=== PATIENT | female | born 1995 | race American Indian/Alaskan Native ===

== ENCOUNTER 2016-11-03 04:16 | Emergency (ER) | payer SELFPAY ==
[2016-11-03 05:40] LABS: Basophils % (Auto) 0.4 % (0.0-1.8); Eosinophils % (Auto) 0.9 % (0.0-4.3); Hematocrit 36.5 % (30.3-42.9); Hemoglobin 11.8 gm/dl (10.1-14.3); Mean Corpuscular HGB Conc 32 % (30-34); Mean Corpuscular Hemoglobin 27 pg (28-32); Mean Corpuscular Volume 84 fl (79-97); Platelet Count 252 K/mm3 (140-440); Red Blood Count 4.36 M/mm3 (3.65-5.03); Red Cell Distribution Width 13.7 % (13.2-15.2)
[2016-11-03 06:05] LABS: Creatine Kinase MB 2.4 ng/mL (0.0-4.0)
[2016-11-03 06:06] LABS: Anion Gap 20 mmol/L; Blood Urea Nitrogen 9 mg/dL (7-17); Calcium 9.4 mg/dL (8.4-10.2); Carbon Dioxide 22 mmol/L (22-30); Chloride 101.6 mmol/L (98-107); Creatine Kinase 440 units/L (30-135); Glucose 97 mg/dL (65-100); Potassium 4.1 mmol/L (3.6-5.0); Sodium 139 mmol/L (137-145)
--- NOTE | 2016-11-03 06:16 | Emergency Department Report ---
HPI - General Chief Complaint: Medical Clearance Time Seen by Provider: 11/03/16 05:07 - HPI HPI: 21-year-old female presents today with left-sided chest tightness since 12 PM yesterday. Patient states that she also had a stress left-sided abdominal pain that resolved. Positive for history of asthma. Patient complaining of chest pain with deep breath. Denies fever, chills, cough, cold symptoms, shortness of breath, nausea, vomiting, abdominal pain. Denies having any medication for symptomatic relief. Denies history of similar symptoms. Rates her chest pain with deep breath as a 7 out of 10. ED Past Medical Hx - Past Medical History Previous Medical History?: Yes Hx Asthma: Yes - Surgical History Past Surgical History?: No - Social History Smoking Status: Current Some Day Smoker Substance Use Type: None - Medications Home Medications: Home Medications Medication Instructions Recorded Confirmed Last Taken Type Naproxen [Naprosyn] 500 mg PO BID #20 tablet 11/03/16 Unknown Rx ED Review of Systems ROS: Stated complaint: GENERAL ILLNESS Other details as noted in HPI Constitutional: denies: chills, fever, malaise Eyes: denies: eye pain ENT: denies: ear pain, throat pain, congestion Respiratory: denies: cough, shortness of breath, wheezing Cardiovascular: chest pain. denies: palpitations Endocrine: no symptoms reported Gastrointestinal: denies: abdominal pain, nausea, vomiting Physical Exam - Physical Exam Vital Signs: Vital Signs 11/03/16 04:42 Temperature 98.2 F Pulse Rate 102 H Respiratory 32 H Rate Blood Pressure 128/90 O2 Sat by Pulse 100 Oximetry Physical Exam: GENERAL: The patient is well-developed and well-nourished. Patient is in NAD. HEAD: Normocephalic. Atraumatic. CHEST/LUNGS: Clear to auscultation throughout. HEART/CARDIOVASCULAR: Regular rate and rhythm. No murmurs, rubs or gallops. ABDOMEN: Abdomen is soft, nontender. Bowel sounds normoactive. No guarding or rebound tenderness. EXTREMITIES: Peripheral pulses intact. Capillary refill less than 2 seconds. NEURO: Alert and oriented x 3. Normal gait. ED Course Vital Signs 11/03/16 04:42 Temperature 98.2 F Pulse Rate 102 H Respiratory 32 H Rate Blood Pressure 128/90 O2 Sat by Pulse 100 Oximetry ED Medical Decision Making - Lab Data Result diagrams: 11/03/16 05:27 11/03/16 05:27 Vital Signs 11/03/16 11/03/16 04:42 06:20 Temperature 98.2 F 97.9 F Pulse Rate 102 H 68 Respiratory 32 H 20 Rate Blood Pressure 128/90 Blood Pressure 122/72 [Right] O2 Sat by Pulse 100 100 Oximetry Lab Results 11/03/16 11/03/16 11/03/16 Range/Units 05:27 05:27 05:27 WBC 8.0 (4.5-11.0) K/mm3 RBC 4.36 (3.65-5.03) M/mm3 Hgb 11.8 (10.1-14.3) gm/dl Hct 36.5 (30.3-42.9) % MCV 84 (79-97) fl MCH 27 L (28-32) pg MCHC 32 (30-34) % RDW 13.7 (13.2-15.2) % Plt Count 252 (140-440) K/mm3 Lymph % (Auto) 36.3 H (13.4-35.0) % [place] % (Auto) 6.5 (0.0-7.3) % Eos % (Auto) 0.9 (0.0-4.3) % Baso % (Auto) 0.4 (0.0-1.8) % Lymph # 2.9 (1.2-5.4) K/mm3 [place] # 0.5 (0.0-0.8) K/mm3 Eos # 0.1 (0.0-0.4) K/mm3 Baso # 0.0 (0.0-0.1) K/mm3 Seg Neutrophils % 55.9 (40.0-70.0) % Seg Neutrophils # 4.5 (1.8-7.7) K/mm3 D-Dimer 191.14 (0-234) ng/mlDDU Sodium 139 (137-145) mmol/L Potassium 4.1 (3.6-5.0) mmol/L Chloride 101.6 (98-107) mmol/L Carbon Dioxide 22 (22-30) mmol/L Anion Gap 20 mmol/L BUN 9 (7-17) mg/dL Creatinine 0.5 L (0.7-1.2) mg/dL Estimated GFR > 60 ml/min BUN/Creatinine Ratio 18.00 % Glucose 97 (65-100) mg/dL Calcium 9.4 (8.4-10.2) mg/dL Total Creatine Kinase 440 H (30-135) units/L CK-MB (CK-2) 2.4 (0.0-4.0) ng/mL CK-MB (CK-2) Rel Index 0.5 (0-4) Troponin T < 0.010 (0.00-0.029) ng/mL - Radiology Data Radiology results: image reviewed interpreted by me: Image reviewed by Dr. Davenport and myself. CXR: No acute cardiopulmonary findings. - Medical Decision Making 21-year-old female presents today with left-sided chest tightness and chest pain with deep breath. Her x-ray reveals no acute findings. Her lab results including d-dimer is within normal limits. Consulted with Dr. Davenport. Patient is in no acute distress at this time. She will be discharged home and is encouraged to follow up with a primary care provider. She will be sent home on naproxen and is encouraged to return to the emergency room for any worsening symptoms. Critical care attestation.: If time is entered above; I have spent that time in minutes in the direct care of this critically ill patient, excluding procedure time. ED Disposition Clinical Impression: Chest pain Qualifiers: Chest pain type: chest pain on breathing Qualified Code(s): R07.1 - Chest pain on breathing Disposition: DISCHARGED TO HOME OR SELFCARE Is pt being admited?: No Does the pt Need Aspirin: No Condition: Stable Instructions: Chest Pain (ED) Additional Instructions: Follow with primary care provider. Return to the emergency department if symptoms worsen. Prescriptions: Naproxen [Naprosyn] 500 mg PO BID #20 tablet Referrals: PRIMARY CAREMD [Primary Care Provider] - 3-5 Days EVA ROBERTSON MD [Staff Physician] - 3-5 Days [facility] [Outside] - 3-5 Days Forms: Work/School Release Form(ED) Time of Disposition: 06:15
[2016-11-03 06:39] VITALS: BP 122/72
--- NOTE | 2016-11-03 07:55 | XRay Report ---
CHEST 2 VIEWS INDICATION: Chest pain. COMPARISON: None similar at this institution. FINDINGS: PA and lateral chest radiographs demonstrate normal cardiomediastinal silhouette. Clear lungs. Intact bones. CONCLUSION: No acute disease in the chest. Thank you for the opportunity to participate in this patient's care.
== END 2016-11-03 06:20 | disposition home or self-care (01) ==
LOC: ED 04:16
DX: R07.1 Chest pain on breathing (principal); J45.909 Unspecified asthma, uncomplicated; Z72.0 Tobacco use
CPT/HCPCS: 36415; 71020; 80048; 82550; 82553; 84484; 85025; 85379

== ENCOUNTER 2017-11-01 19:50 | Outpatient (CLI) | payer MEDICAID ==
[2017-11-01] MEDS ORDERED: LACTATED RINGERS 1,000 ML IV ONE (19:53)
[2017-11-01 20:36] VITALS: BP 102/54
== END 2017-11-01 20:52 | disposition home or self-care (01) ==
LOC: TRG 19:50
PROVIDERS: ATTEND Obstetrics & Gynecology
DX: O47.03 False labor before 37 completed weeks of gestation, third trimester (principal); Z3A.31 31 weeks gestation of pregnancy
CPT/HCPCS: 59025

== ENCOUNTER 2017-12-04 20:55 | Outpatient (CLI) | payer MEDICAID ==
[2017-12-04] MEDS ORDERED: NITRATEST PAPER MC ONE (22:00)
[2017-12-04] MEDS ORDERED: LACTATED RINGERS 500 ML IV ONE (22:48)
[2017-12-04 23:11] LABS: Bilirubin,Urine NEG (Negative); Blood,Urine NEG (Negative); Color,Urine Yellow (Yellow); Protein,Urine <15 mg/dL mg/dL (Negative); Urobilinogen,Urine < 2.0 mg/dL (<2.0)
[2017-12-05 00:10] VITALS: BP 119/61
== END 2017-12-04 22:00 | disposition home or self-care (01) ==
LOC: TRG 20:55
PROVIDERS: ATTEND Obstetrics & Gynecology
DX: O47.03 False labor before 37 completed weeks of gestation, third trimester (principal); Z3A.36 36 weeks gestation of pregnancy
CPT/HCPCS: 59025; 81001; J7120

== ENCOUNTER 2018-01-05 16:42 | Inpatient (IN) | payer MEDICAID ==
[2018-01-05] MEDS: D5LR 1,000 ML IV SCH ×2 (18:20→21:29)
[2018-01-05] MEDS ORDERED: LACTATED RINGERS 1,000 ML IV ONE (18:37)
[2018-01-05] MEDS ORDERED: SUBLIMAZE IV ONE (19:26)
[2018-01-05] MEDS ORDERED: STADOL IV PRN (19:26)
[2018-01-05] MEDS ORDERED: SUBLIMAZE ONE (19:33)
[2018-01-05 19:38] LABS: Hematocrit 34.9 % (30.3-42.9); Mean Corpuscular HGB Conc 32 % (30-34); Mean Corpuscular Hemoglobin 26 pg (28-32); Mean Corpuscular Volume 83 fl (79-97); Platelet Count 223 K/mm3 (140-440); Red Blood Count 4.22 M/mm3 (3.65-5.03); Red Cell Distribution Width 14.5 % (13.2-15.2)
[2018-01-05] MEDS ORDERED: SUBLIMAZE IV PRN (20:30)
[2018-01-05] MEDS: SUBLIMAZE IV PRN (22:17)
[2018-01-06] MEDS: SUBLIMAZE IV PRN (02:49)
[2018-01-06] MEDS: LACTATED RINGERS 1,000 ML IV SCH ×4 (03:56→13:30)
[2018-01-06] MEDS ORDERED: ePHEDrine SULFATE ONE (04:23)
[2018-01-06] MEDS ORDERED: ePHEDrine SULFATE IV PRN (04:34)
[2018-01-06] MEDS ORDERED: NARCAN 2 MG/2 ML IV PRN (04:34)
--- NOTE | 2018-01-06 04:34 | Anesthesia Consultation ---
Anesthesia Consult and Med Hx Date of service: 01/06/18 - Airway Anesthetic Teeth Evaluation: Good ROM Head & Neck: Adequate Mental/Hyoid Distance: Adequate Mallampati Class: Class III Intubation Access Assessment: Possibly Difficult - Pulmonary Exam CTA: Yes - Cardiac Exam Cardiac Exam: RRR - Pre-Operative Health Status ASA Pre-Surgery Classification: ASA3 Proposed Anesthetic Plan: Epidural - Pulmonary Hx Asthma: No COPD: No Hx Pneumonia: No - Cardiovascular System Hx Hypertension: No - Central Nervous System Hx Seizures: No Hx Psychiatric Problems: No - Endocrine Hx Renal Disease: No Hx End Stage Renal Disease: No Hx Hypothyroidism: No Hx Hyperthyroidism: No - Hematic Hx Anemia: No Hx Sickle Cell Disease: No - Other Systems Hx Alcohol Use: No
[2018-01-06] MEDS ORDERED: ZOFRAN ONE (05:06)
[2018-01-06] MEDS ORDERED: ZOFRAN IV ONE (05:16)
[2018-01-06] MEDS: fentaNYL-BUPIV 2 MCG/ML-0.125% 200 MCG/100 ML BAG EPIDURAL SCH ×3 (05:49→17:00)
[2018-01-06] MEDS ORDERED: PITOCin/NS 30 UNIT/500ML 30 UNITS/500 ML BAG IV SCH (06:00)
[2018-01-06] MEDS ORDERED: TYLENOL PO ONE (08:43)
[2018-01-06] MEDS ORDERED: XYLOCAINE 2% INFILTRATI ONE (12:48)
[2018-01-06] MEDS ORDERED: PITOCin/NS 20 UNIT/1000ML DRIP 20,000 MILLIUNITS/1,000 ML BAG IV ONE ×2 (14:06→17:20)
[2018-01-06] MEDS ORDERED: CYTOTEC ONE (14:06)
[2018-01-06] MEDS ORDERED: NACL 0.9% 1000 ML 1,000 ML ONE (14:31)
--- NOTE | 2018-01-06 15:04 | History and Physical Report ---
History of Present Illness Date of examination: 01/06/18 Date of admission: 01/05/18 18:43 Chief complaint: I'm having contractions History of present illness: Patient is a 22 year old who presents for active contractions. Patient was a late presentation to care at 16 weeks. She has a history of herpes and was positive for trichomonas during her . care also complicated by obesity. 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, trichomonas Family/Genetic History: none Social history: single - Obstetrical History Expected Date of Delivery: 12/30/17 Actual Gestation: 41 Week(s) 0 Day(s) : 2 Medications and Allergies Allergies Allergy/AdvReac Type Severity Reaction Status Date / Time No Known Allergies Allergy Verified 11/03/16 04:41 Home Medications Medication Instructions Recorded Confirmed Last Taken Type Pnv No.95/Ferrous Fum/Folic AC 1 tab PO DAILY 01/05/18 01/05/18 Unknown History [ Vitamins Tablet] Ranitidine HCl [Acid Cutter Operator] 150 mg PO DAILY 01/05/18 01/05/18 Unknown History valACYclovir [Valtrex] 1 tab PO DAILY 01/05/18 01/05/18 Unknown History Active Meds: Active Medications Butorphanol Tartrate (Stadol) 1 mg IV Q2H PRN PRN Reason: Labor Pain Ephedrine Sulfate (Ephedrine Sulfate) 10 mg IV Q2M PRN PRN Reason: Hypotension Last Admin: 01/06/18 13:40 Dose: 10 mg Fentanyl (Sublimaze) 100 mcg IV Q2H PRN PRN Reason: Labor Pain Last Admin: 01/06/18 02:49 Dose: 100 mcg Dextrose/Lactated Ringer's (D5lr) 1,000 mls @ 125 mls/hr IV DIRECT ALAN Last Admin: 01/05/18 21:29 Dose: 125 mls/hr Lactated Ringer's (Lactated Ringers) 1,000 mls @ 125 mls/hr IV DIRECT ALAN Last Admin: 01/06/18 13:30 Dose: 200 mls/hr Fentanyl/Bupivacaine/Sodium Chlor (Fentanyl-Bupiv 2 Mcg/Ml-0.125%) 200 mcg in 100 mls @ 12 mls/hr EPIDURAL TITR ALAN; Protocol Last Admin: 01/06/18 13:24 Dose: 12 mls/hr Oxytocin/Sodium Chloride (Pitocin/Ns 30 Unit/500ml) 30 units in 500 mls @ 2 mls /hr IV TITR ALAN; Protocol Last Titration: 01/06/18 13:36 Dose: 8 milliunits/min, 8 mls/hr Naloxone HCl (Narcan 2 Mg/2 Ml) 0.2 mg IV Q5M PRN PRN Reason: Respiratory sedation Review of Systems All systems: negative Constitutional: weight gain Genitourinary: contractions - Vital Signs Vital signs: Vital Signs Temp Pulse Resp BP 98 F 68 16 125/70 01/05/18 17:10 01/05/18 17:10 01/05/18 17:10 01/05/18 17:10 Temp Pulse Resp BP Pulse Ox 98.8 F 112 H 22 110/53 100 01/06/18 08:55 01/06/18 10:11 01/06/18 10:11 01/06/18 10:11 01/06/18 10:11 - Physical Exam Breasts: Positive: deferred Cardiovascular: Regular rate, Normal S1, Normal S2 Lungs: Positive: Clear to auscultation, Normal air movement Abdomen: Positive: normal appearance, soft, normal bowel sounds Genitourinary (Female): Positive: normal external genitalia Uterus: Positive: normal size, normal contour - Obstetrical Cervical Dilatation: 3 Cervical Effacement Percentage: 80 Results Result Diagrams: 01/05/18 19:12 Abnormal lab results 01/05/18 Range/Units 19:12 WBC 13.5 H (4.5-11.0) K/mm3 MCH 26 L (28-32) pg All other labs normal. Assessment and Plan IUP at 40.1 weeks in labor. Admit for labor augmentation. Anticipate .
--- NOTE | 2018-01-06 15:09 | Event Note ---
Date: 01/06/18 Notified by nursing staff that patient had SROM with meconium fluid. IUPC placed for amnioinfusion. Patient now at 9.5cm. Anticipate .
[2018-01-06] MEDS ORDERED: MINERAL OIL ONE (15:51)
[2018-01-06] MEDS ORDERED: MINERAL OIL TP ONE (16:00)
[2018-01-06] MEDS ORDERED: NORCO 7.5/325 PO PRN (17:01)
--- NOTE | 2018-01-06 17:30 | Procedure Note ---
OB Delivery Note - Delivery Date of Delivery: 01/06/18 Surgeon: MARIANNA SAHU Estimated blood loss: 200cc - Vaginal Delivery presentation: vertex Delivery position: OA Intrapartum events: febrile- temp >100.3, PROM->1hr before delivery, meconium Delivery induction: none Delivery augmentation: pitocin Delivery monitor: external FHT, external uterine Route of delivery: Delivery placenta: spontaneous Delivery cord: 3 umbilical vessels Episiotomy: none Delivery laceration: none Anesthesia: epidural Delivery comments: Viable female delivered over intact perineum. Mouth and nose suctioned on field. Body of delivered and handed to waiting NICU personnel after cord was cut and clamped. Apgars 5,8. Placenta delivered spontaneously and intact with 3vc and meconium staining. No lacerations. Patient tolerated procedure well. - A at 1 minute: 5 at 5 minutes: 8 Infant Gender: Female (weight 8 pounds 11 ounces.)
[2018-01-06] MEDS ORDERED: MOTRIN PO PRN (17:32)
[2018-01-06] MEDS ORDERED: ANCEF/NS 1 GM/50 ML 1 GM/50 ML BAG IV SCH (18:00)
[2018-01-06] MEDS: ceFAZolin 1 GM in NACL 0.9% 20 ML IV SCH (19:26)
[2018-01-06] MEDS ORDERED: TYLENOL PO PRN (21:07)
[2018-01-06] MEDS ORDERED: ZOFRAN IV PRN (21:07)
[2018-01-06] MEDS ORDERED: MILK OF MAGNESIA PO PRN (21:07)
[2018-01-06] MEDS ORDERED: LANSINOH TP PRN (21:07)
[2018-01-06] MEDS ORDERED: SODIUM CHLORIDE FLUSH SYRINGE 10 ML IV PRN (21:07)
[2018-01-06] MEDS ORDERED: PHENERGAN PO PRN (21:07)
[2018-01-06] MEDS ORDERED: TUCKS PAD TP PRN (21:07)
[2018-01-06] MEDS ORDERED: BENADRYL PO PRN (21:07)
[2018-01-06] MEDS ORDERED: DULCOLAX PR PRN (21:07)
[2018-01-06] MEDS: MOTRIN PO SCH (23:06)
[2018-01-06] MEDS: NORCO 5/325 PO PRN (23:06)
[2018-01-06] MEDS: COLACE PO SCH (23:06)
[2018-01-07] MEDS: ceFAZolin 1 GM in NACL 0.9% 20 ML IV SCH ×2 (03:13→11:39)
[2018-01-07] MEDS: NORCO 5/325 PO PRN ×3 (05:05→22:14)
[2018-01-07] MEDS: MOTRIN PO SCH ×2 (05:05→11:38)
[2018-01-07 05:20] LABS: Hematocrit 27.6 % (30.3-42.9); Hemoglobin 8.7 gm/dl (10.1-14.3)
--- NOTE | 2018-01-07 08:11 | Progress Note ---
Assessment and Plan A/P PPD#1 s/p no complaints VSS H/H 11-8.7 on iron routine PP orders d/c home tomorrow Subjective - Subjective Date of service: 01/07/18 Principal diagnosis: s/p Patient reports: appetite normal, voiding normally, pain well controlled, flatus , ambulating normally [place]: doing well Objective - Vital Signs Latest vital signs: Vital Signs Temp Pulse Resp BP BP Pulse Ox 01/07/18 04:10 98.3 F 78 18 120/42 01/07/18 00:00 98.6 F 83 18 110/55 01/06/18 19:45 98.8 F 80 20 148/70 01/06/18 19:31 109 H 133/60 01/06/18 19:06 20 01/06/18 18:45 99.4 F 118 H 20 136/63 01/06/18 18:10 108 H 22 139/63 01/06/18 17:45 110 H 22 133/63 01/06/18 17:30 116 H 24 144/68 01/06/18 17:10 101.3 F H 114 H 24 162/67 100 01/06/18 16:55 112 H 26 H 122/58 01/06/18 16:03 98.9 F 117 H 26 H 150/65 01/06/18 10:11 112 H 22 110/53 100 01/06/18 09:55 110 H 20 113/58 01/06/18 09:40 74 20 111/53 01/06/18 09:25 79 20 124/58 01/06/18 09:07 77 20 122/56 99 01/06/18 08:55 98.8 F 77 18 127/57 01/06/18 08:40 77 125/57 01/06/18 08:25 79 20 123/56 100 01/06/18 08:10 99 H 20 133/63 Intake and Output 01/06/18 01/07/18 01/07/18 23:59 07:59 15:59 Output Total 1900 1000 Balance -1900 -1000 Output: Urine 1900 1000 Void 1900 1000 Other: Total, Output Amount 1000 1000 Estimated Blood Loss 250 - Exam Breasts: Present: normal Cardiovascular: Present: Regular rate, Normal S1 Lungs: Present: Clear to auscultation, Normal air movement Abdomen: Present: normal appearance, soft, normal bowel sounds. Absent: distention, tenderness, guarding Vulva: both: normal Uterus: Present: normal, firm, fundal height below umbilicus. Absent: bogginess , tenderness Extremities: Present: normal Deep Tendon Reflex Grade: Normal +2 - Labs Labs: Abnormal lab results 01/07/18 Range/Units 05:01 Hgb 8.7 L (10.1-14.3) gm/dl Hct 27.6 L D (30.3-42.9) %
[2018-01-07] MEDS: PRENATAL VITAMIN PO SCH (11:38)
[2018-01-07] MEDS: COLACE PO SCH ×2 (11:38→22:14)
--- NOTE | 2018-01-07 21:17 | Progress Note ---
Subjective Date of service: 01/07/18 Principal diagnosis: s/p Interval history: Notified by the nurse that the patient was complaining of tight muscles in the back in the region of the epidural. The nurse explained that we had been notified earlier during the day. I informed the nurse that this was the first time I was notified about this issue. When I arrived in the room, the nurse ushered me into the room. Patient sitting straight up talking on the phone. The patient was awake alert and oriented in no acute distress. She explains the symptoms as tender at the area of the epidural with radiation of tightness around the abdomen and the patient traces the pattern of the external obliques with her hands. She then indicated that there was an incidence of the pain pain traveling up the spine. I traced the multifidus group of paraspinous muscles of which she indicated that I was tracing the correct muscle group. Patient asked about any signs of infection. The patient correctly indicated one incidence of a fever yesterday. She indicated that she had several doses of antibiotics but completed the round today. After explaining my findings and discussion with the patient, the patient takes the ear bud out of her ear and announces indicates that she was placing the phone on speaker function. The patient indicated that it was her mother on the phone. Her mother indicates her dissatisfaction with the fact that her daughter had been waiting all day for this consult. I informed the mother that I was present within 30 minutes of being notified. The mother indicated that it was her goal to have the back issue resolved prior to her daughter leaving the hospital. I explained that I am a consulting physician and do not have admitting privileges. I also informed the patient and mother that I will not be placing orders but rather be making recommendations. AAO, NAD, pupils of equal size, CN II through XII grossly intact, MAEW, able to walk without assistance with normal gait, minimal TTP over the lumbar region without any erythema or calor I am concerned about the need for antibiotics. Myalgias are common with some forms of infection but also seems to be common with some antibiotics. Without any erythema or calor or meningial signs, it is unlikely that the source would be the epidural catheter. Still, if any signs occur, anesthesia should be notified. Now that the antibiotics are complete and assuming the the infection is clear, if this was the cause of the symptoms they will not return. Any time that a muscle is pierced by a needle, the muscle can become 'twitchy' making spasms fairly common for a few days afterwards. This would be a likely explanation of the tight muscles in the lumbar region. Sometimes certain groups can recruit muscles in the area. The multifidus muscle appeared to recruit causing the expansion of discomfort up the spine. In addition to this, the gestational period places a lot of strain on the spine musculature especially in the lumbar region Assuming that this is muscular back ache causing the tight muscles the treatment is: Stretching the muscle groups frequently. A Physical Therapist can be asked to teach the patient an adequate regimen. She should remain as active as possible. NSAID unless contraindication is known. Muscle relaxants like Zanaflex, Flexeril, Robaxin, Skelaxin Narcotics like hydrocodone or oxycodone should be utilized very sparingly if at all for acute flares only. We should watch the electrolytes like potassium and magnesium and treat deficiencies. If the patient has a continued problem with this, consider a referral to a fellowship trained interventional pain management physician. Objective - Constitutional Vitals: Vital Signs - 12hr 01/07/18 01/07/18 08:13 16:55 Temperature 97.7 F 97.2 F L Pulse Rate 85 79 Respiratory 18 18 Rate Blood Pressure 131/60 152/80 O2 Sat by Pulse 98 100 Oximetry - Labs CBC & Chem 7: 01/07/18 05:01 Labs: Abnormal lab results 01/07/18 Range/Units 05:01 Hgb 8.7 L (10.1-14.3) gm/dl Hct 27.6 L D (30.3-42.9) %
--- NOTE | 2018-01-08 09:00 | Progress Note ---
Assessment and Plan - Patient Problems (1) Muscle spasm Current Visit: Yes Status: Acute Plan to address problem: Will try a course of Flexeril today and monitor patient's symptoms. Subjective - Subjective Date of service: 01/08/18 Principal diagnosis: s/p Interval history: The patient complains of pain in her body. She reports she has been experiencing spasms in her back. The patient was evaluated by anesthesia yesterday. Has not used any muscle relaxants as of yet. She has been tolerating a regular diet without complication. Patient reports: appetite normal, voiding normally, no pain well controlled : doing well Objective - Vital Signs Latest vital signs: Vital Signs Temp Pulse Resp BP BP Pulse Ox 01/07/18 23:55 98.6 F 80 16 128/58 01/07/18 23:14 18 01/07/18 22:14 18 01/07/18 16:55 97.2 F L 79 18 152/80 100 Intake and Output 01/07/18 01/08/18 01/08/18 22:59 06:59 14:59 Intake Total 240 360 Balance 240 360 Intake: Intake, Free Water 240 360 Other: # Voids Void 2 1
[2018-01-08] MEDS: FLEXERIL PO PRN ×2 (10:46→22:39)
[2018-01-08] MEDS: NORCO 5/325 PO PRN (10:46)
[2018-01-08] MEDS: PRENATAL VITAMIN PO SCH (10:48)
[2018-01-08] MEDS: COLACE PO SCH ×2 (10:48→21:42)
--- NOTE | 2018-01-08 13:49 | Event Note ---
Date: 01/08/18 Patient reports feeling better with the use of flexeril. She is attempting to perform some stretching exercises. Will send patient home tomorrow
--- NOTE | 2018-01-08 13:52 | Discharge Summary ---
Providers - Providers Date of Admission: 01/05/18 18:43 Date of discharge: 01/09/18 Attending physician: JERILYN NUÑEZ MD Primary care physician: JERILYN NUÑEZ MD Hospitalization Reason for admission: active labor Delivery: complications: other (muscle spasm) Discharge diagnosis: IUP at term delivered Hospital course: Patient admitted in active labor complicated by meconium. The patient has a . complicated by lower back pain and spasms. She experienced improvement with flexeril. Condition at discharge: Good Disposition: DC-01 TO HOME OR SELFCARE - Discharge Diagnoses (1) Muscle spasm Status: Acute Plan - Discharge Medications Prescriptions: Cyclobenzaprine [Flexeril] 10 mg PO TID PRN #30 tablet PRN Reason: Muscle Spasm Ferrous Sulfate 325 mg PO BID #60 tablet. Ibuprofen [Motrin] 600 mg PO Q8H PRN #30 tablet PRN Reason: Pain oxyCODONE /ACETAMINOPHEN [Percocet 5/325] 1 tab PO Q6HR PRN #20 tablet PRN Reason: Pain - Provider Discharge Summary Activity: no sex for 6 weeks, no heavy lifting 4 weeks, no strenuous exercise Diet: routine Additional instructions: [] Smoking cessation referral if applicable(refer to patient education folder for contact #) [] Refer to [facility] Booklet Call your doctor immediately for: * Fever > 100.5 * Heavy vaginal bleeding ( >1 pad per hour) * Severe persistent headache * Shortness of breath * Reddened, hot, painful area to leg or breast * schedule followup in 4 weeks - Follow up plan
[2018-01-08] MEDS: MOTRIN PO SCH (21:42)
[2018-01-09] MEDS: MOTRIN PO SCH ×2 (05:18→10:41)
[2018-01-09 09:36] VITALS: BP 123/51
[2018-01-09] MEDS: COLACE PO SCH (10:41)
[2018-01-09] MEDS: PRENATAL VITAMIN PO SCH (10:41)
[2018-01-09] MEDS: NORCO 5/325 PO PRN (10:42)
== END 2018-01-09 13:00 | disposition home or self-care (01) | DRG 774 ==
LOC: TRG 16:42 → LD 18:43 → OB 01-06 22:23
PROVIDERS: ADMIT Obstetrics & Gynecology; ATTEND Obstetrics & Gynecology
PROC: 10E0XZZ Delivery of Products of Conception, External Approach (ICD-10-PCS; principal; 2018-01-06)
PROC: 3E0R3BZ Introduction of Anesthetic Agent into Spinal Canal, Percutaneous Approach (ICD-10-PCS; 2018-01-06)
PROC: 00HU33Z Insertion of Infusion Device into Spinal Canal, Percutaneous Approach (ICD-10-PCS; 2018-01-06)
PROC: 10H07YZ Insertion of Other Device into Products of Conception, Via Natural or Artificial Opening (ICD-10-PCS; 2018-01-06)
DX: O77.0 Labor and delivery complicated by meconium in amniotic fluid (principal); O98.513 Other viral diseases complicating pregnancy, third trimester; O99.214 Obesity complicating childbirth; M62.838 Other muscle spasm; Z37.0 Single live birth; Z68.43 Body mass index [BMI] 50.0-59.9, adult; B00.9 Herpesviral infection, unspecified; O98.313 Other infections with a predominantly sexual mode of transmission complicating pregnancy, third trimester; A59.9 Trichomoniasis, unspecified; E66.01 Morbid (severe) obesity due to excess calories; O99.89 Other specified diseases and conditions complicating pregnancy, childbirth and the puerperium; O75.2 Pyrexia during labor, not elsewhere classified
CPT/HCPCS: 36415; 85014; 85018; 85027; 86592; 86850; 86900; 86901; 88307; 99211; G0463; J0690; J2405; J2590; J3010; J7030; J7120; J7121

== ENCOUNTER 2018-04-08 14:01 | Emergency (ER) | payer SELFPAY ==
[2018-04-08 14:22] VITALS: BP 166/61
--- NOTE | 2018-04-08 17:15 | Emergency Department Report ---
ED ENT HPI - General Chief complaint: Sore Throat Stated complaint: SORE THROAT Time Seen by Provider: 04/08/18 16:57 Source: patient Mode of arrival: Ambulatory Limitations: No Limitations - History of Present Illness Initial comments: This is a 23-year-old female nontoxic, well nourished in appearance, no acute signs of distress presents to the ED with c/o of sore throat and right ear pain with discharge. Patient describes sore throat as swallowing razer blades. Patient denies any fever, chills, headache, stiff neck, nausea, vomiting, chest pain, shortness of breath, numbness or tingling. Patient denies any mastoid tenderness. Patient denies any drooling or hoarseness. Patient denies any allergies or significant past medical history. MD complaint: sore throat, ear pain -: days(s) (3) Location: R ear, throat Severity: mild Severity scale (0 -10): 8 Quality: aching Consistency: constant Improves with: none Worsens with: swallowing Associated Symptoms: pain with swallowing, sore throat, discharge from ear. denies: fever, cough, gum swelling, toothache, tinnitus, hearing loss, rhinorrhea - Related Data Home Medications Medication Instructions Recorded Confirmed Last Taken Pnv No.95/Ferrous Fum/Folic AC 1 tab PO DAILY 01/05/18 01/05/18 Unknown [ Vitamins Tablet] Ranitidine HCl [Acid Barrel Cutter] 150 mg PO DAILY 01/05/18 01/05/18 Unknown valACYclovir [Valtrex] 1 tab PO DAILY 01/05/18 01/05/18 Unknown Previous Rx's Medication Instructions Recorded Last Taken Type Ferrous Sulfate 325 mg PO BID #60 tablet. 01/07/18 Unknown Rx Ibuprofen [Motrin] 600 mg PO Q8H PRN #30 tablet 01/07/18 Unknown Rx oxyCODONE /ACETAMINOPHEN [Percocet 1 tab PO Q6HR PRN #20 tablet 01/07/18 Unknown Rx 5/325] Cyclobenzaprine [Flexeril] 10 mg PO TID PRN #30 tablet 01/08/18 Unknown Rx Amoxicillin/K Clav Tab [Augmentin 1 tab PO Q12HR #20 tab 04/08/18 Unknown Rx 875 mg] Ciprofloxacin 0.2%(Nf) 4 drops AD TID #1 droperette 04/08/18 Unknown Rx [Ciprofloxacin Otic 0.2%(Nf)] Allergies Allergy/AdvReac Type Severity Reaction Status Date / Time No Known Allergies Allergy Verified 11/03/16 04:41 ED Dental HPI - General Chief complaint: Sore Throat Stated complaint: SORE THROAT Time Seen by Provider: 04/08/18 16:57 Source: patient Mode of arrival: Ambulatory Limitations: No Limitations - Related Data Home Medications Medication Instructions Recorded Confirmed Last Taken Pnv No.95/Ferrous Fum/Folic AC 1 tab PO DAILY 01/05/18 01/05/18 Unknown [ Vitamins Tablet] Ranitidine HCl [Acid Barrel Cutter] 150 mg PO DAILY 01/05/18 01/05/18 Unknown valACYclovir [Valtrex] 1 tab PO DAILY 01/05/18 01/05/18 Unknown Previous Rx's Medication Instructions Recorded Last Taken Type Ferrous Sulfate 325 mg PO BID #60 tablet. 01/07/18 Unknown Rx Ibuprofen [Motrin] 600 mg PO Q8H PRN #30 tablet 01/07/18 Unknown Rx oxyCODONE /ACETAMINOPHEN [Percocet 1 tab PO Q6HR PRN #20 tablet 01/07/18 Unknown Rx 5/325] Cyclobenzaprine [Flexeril] 10 mg PO TID PRN #30 tablet 01/08/18 Unknown Rx Amoxicillin/K Clav Tab [Augmentin 1 tab PO Q12HR #20 tab 04/08/18 Unknown Rx 875 mg] Ciprofloxacin 0.2%(Nf) 4 drops AD TID #1 droperette 04/08/18 Unknown Rx [Ciprofloxacin Otic 0.2%(Nf)] Allergies Allergy/AdvReac Type Severity Reaction Status Date / Time No Known Allergies Allergy Verified 11/03/16 04:41 ED Review of Systems ROS: Stated complaint: SORE THROAT Other details as noted in HPI Constitutional: denies: chills, fever Eyes: denies: eye pain, eye discharge, vision change ENT: ear pain, throat pain Respiratory: denies: cough, shortness of breath, wheezing Cardiovascular: denies: chest pain, palpitations Endocrine: no symptoms reported Gastrointestinal: denies: abdominal pain, nausea, diarrhea Genitourinary: denies: urgency, dysuria, discharge Musculoskeletal: denies: back pain, joint swelling, arthralgia Skin: denies: rash, lesions Neurological: denies: headache, weakness, paresthesias Psychiatric: denies: anxiety, depression Hematological/Lymphatic: denies: easy bleeding, easy bruising ED Past Medical Hx - Past Medical History Previous Medical History?: No Hx Hypertension: No Hx Congestive Heart Failure: No Hx Diabetes: No Hx Deep Vein Thrombosis: No Hx Renal Disease: No Hx Sickle Cell Disease: No Hx Seizures: No Hx Asthma: No Hx COPD: No Hx HIV: No - Surgical History Past Surgical History?: No - Social History Smoking Status: Never Smoker Substance Use Type: None - Medications Home Medications: Home Medications Medication Instructions Recorded Confirmed Last Taken Type Pnv No.95/Ferrous Fum/Folic AC 1 tab PO DAILY 01/05/18 01/05/18 Unknown History [ Vitamins Tablet] Ranitidine HCl [Acid Barrel Cutter] 150 mg PO DAILY 01/05/18 01/05/18 Unknown History valACYclovir [Valtrex] 1 tab PO DAILY 01/05/18 01/05/18 Unknown History Ferrous Sulfate 325 mg PO BID #60 tablet. 01/07/18 Unknown Rx Ibuprofen [Motrin] 600 mg PO Q8H PRN #30 tablet 01/07/18 Unknown Rx oxyCODONE /ACETAMINOPHEN [Percocet 1 tab PO Q6HR PRN #20 tablet 01/07/18 Unknown Rx 5/325] Cyclobenzaprine [Flexeril] 10 mg PO TID PRN #30 tablet 01/08/18 Unknown Rx Amoxicillin/K Clav Tab [Augmentin 1 tab PO Q12HR #20 tab 04/08/18 Unknown Rx 875 mg] Ciprofloxacin 0.2%(Nf) 4 drops AD TID #1 droperette 04/08/18 Unknown Rx [Ciprofloxacin Otic 0.2%(Nf)] ED Physical Exam - General Limitations: No Limitations General appearance: alert, in no apparent distress - Head Head exam: Present: atraumatic, normocephalic - Eye Eye exam: Present: normal appearance Pupils: Present: normal accommodation - ENT ENT exam: Present: mucous membranes moist - Expanded ENT Exam Expanded Ear exam: Present: normal external inspection TM/Canal exam: Erythema: Right TM, Bulging: Right TM Mouth exam: Present: normal external inspection, tongue normal. Absent: drooling, trismus, muffled voice, tongue elevation, laceration Teeth exam: Present: normal inspection Throat exam: Positive: tonsillar erythema, tonsillomegaly (2+), tonsillar exudate, other (Uvula midline. No abscess seen.). Negative: R peritonsillar mass, L peritonsillar mass - Neck Neck exam: Present: normal inspection, full ROM, lymphadenopathy (bilateral tonsillar). Absent: tenderness, meningismus - Respiratory Respiratory exam: Present: normal lung sounds bilaterally. Absent: respiratory distress, wheezes, rales, rhonchi, stridor, chest wall tenderness, accessory muscle use, decreased breath sounds, prolonged expiratory - Cardiovascular Cardiovascular Exam: Present: regular rate, normal rhythm, normal heart sounds. Absent: irregular rhythm, systolic murmur, diastolic murmur, rubs, gallop - GI/Abdominal GI/Abdominal exam: Present: soft, normal bowel sounds - Extremities Exam Extremities exam: Present: normal inspection, full ROM, normal capillary refill - Back Exam Back exam: Present: normal inspection, full ROM - Neurological Exam Neurological exam: Present: alert, oriented X3, normal gait - Psychiatric Psychiatric exam: Present: normal affect, normal mood - Skin Skin exam: Present: warm, dry, intact, normal color. Absent: rash ED Course Vital Signs 04/08/18 14:17 Temperature 97.8 F Pulse Rate 85 Respiratory 18 Rate Blood Pressure 166/61 O2 Sat by Pulse 100 Oximetry - Reevaluation(s) Reevaluation #1: 04/08/18 17:17 Patient is speaking in full sentences with no signs of distress noted. Critical care attestation.: If time is entered above; I have spent that time in minutes in the direct care of this critically ill patient, excluding procedure time. ED Disposition Clinical Impression: Tonsillitis with exudate Otitis media Qualifiers: Otitis media type: unspecified Laterality: right Qualified Code(s): H66.91 - Otitis media, unspecified, right ear Otitis externa Qualifiers: Otitis externa type: unspecified type Chronicity: acute Laterality: right Qualified Code(s): H60.501 - Unspecified acute noninfective otitis externa, right ear Disposition: - TO HOME OR SELFCARE Is pt being admited?: No Does the pt Need Aspirin: No Condition: Stable Instructions: Otitis Media (ED), Otitis Externa (ED), Tonsillitis (ED) Additional Instructions: Follow-up with a primary care doctor in 3-5 days or if symptoms worsen and continue return to emergency room as soon as possible. Prescriptions: Amoxicillin/K Clav Tab [Augmentin 875 mg] 1 tab PO Q12HR #20 tab Ciprofloxacin 0.2%(Nf) [Ciprofloxacin Otic 0.2%(Nf)] 4 drops AD TID #1 droperette Referrals: PRIMARY CARE, [Referring] - 3-5 Days KEISHA STEPHENS MD [Staff Physician] - 3-[address] [facility] [Outside] - 3-5 Days [facility] [Outside] - 3-5 Days Forms: Work/School Release Form(ED)
== END 2018-04-08 17:45 | disposition home or self-care (01) ==
LOC: ED 14:01
DX: H66.91 Otitis media, unspecified, right ear (principal); H60.501 Unspecified acute noninfective otitis externa, right ear; J03.90 Acute tonsillitis, unspecified

== ENCOUNTER 2018-11-29 13:28 | Emergency (ER) | payer OTHER ==
--- NOTE | 2018-11-29 14:20 | Emergency Department Report ---
Blank Doc - Documentation Documentation: 23 y o female presents with cc of n/v and generalized abd pain x 2 days labs acc evaluate
[2018-11-29 14:45] LABS: Basophils % (Auto) 0.3 % (0.0-1.8); Eosinophils % (Auto) 0.3 % (0.0-4.3); Hematocrit 38.4 % (30.3-42.9); Hemoglobin 12.6 gm/dl (10.1-14.3); Lymphocytes # (Auto) 1.2 K/mm3 (1.2-5.4); Lymphocytes % (Auto) 17.9 % (13.4-35.0); Mean Corpuscular HGB Conc 33 % (30-34); Mean Corpuscular Volume 82 fl (79-97); Monocytes # (Auto) 0.4 K/mm3 (0.0-0.8); Monocytes % (Auto) 5.9 % (0.0-7.3); Platelet Count 254 K/mm3 (140-440); Red Blood Count 4.66 M/mm3 (3.65-5.03); Red Cell Distribution Width 15.2 % (13.2-15.2)
[2018-11-29 14:59] LABS: BUN/Creatinine Ratio 16; Blood Urea Nitrogen 8 mg/dL (7-17); Calcium 9.5 mg/dL (8.4-10.2); Hemolysis Index 5
[2018-11-29] MEDS ORDERED: NACL 0.9% 1000 ML 1,000 ML IV ONE (16:32)
[2018-11-29] MEDS ORDERED: ZOFRAN IV ONE (16:32)
[2018-11-29] MEDS ORDERED: PEPCID IV ONE (16:33)
[2018-11-29] MEDS ORDERED: SOLU-Medrol IV ONE (16:56)
[2018-11-29] MEDS ORDERED: BENADRYL IV ONE (16:56)
[2018-11-29] MEDS ORDERED: BENADRYL ONE (17:00)
[2018-11-29] MEDS ORDERED: SOLU-Medrol ONE (17:00)
[2018-11-29 18:30] LABS: Bilirubin,Urine NEG (Negative); Blood,Urine NEG (Negative); Color,Urine Yellow (Yellow); Mucus,Urine FEW /HPF; Protein,Urine <15 mg/dL mg/dL (Negative)
[2018-11-29 18:43] LABS: Albumin 3.9 g/dL (3.9-5)
[2018-11-29 19:01] LABS: Alanine Aminotransferase < 5 units/L (7-56); Bilirubin,Direct < 0.2 mg/dL (0-0.2)
--- NOTE | 2018-11-29 19:28 | Emergency Department Report ---
ED N/V/D HPI - General Chief complaint: Nausea/Vomiting/Diarrhea Stated complaint: N/V,WEAKNESS,HEADACHE Time Seen by Provider: 11/29/18 14:16 Source: patient Mode of arrival: Ambulatory Limitations: No Limitations - History of Present Illness Initial comments: 23-year-old female with a past medical history of asthma presents the hospital complaining of nausea, vomiting, and lightheadedness 2 days. Patient has not been able to tolerate by mouth intake. She denies melena, hematochezia, hematemesis, or diarrhea. She complains of generalized abdominal soreness. 8/10 intensity worse or palpation. She complains of chills without documented fever. She denies dysuria, sick contacts, recent travel, recent antibiotic use, or previous abdominal surgery. Headache also reported without blurred vision, numbness, or focal weakness. - Related Data Home Medications Medication Instructions Recorded Confirmed Last Taken Pnv No.95/Ferrous Fum/Folic AC 1 tab PO DAILY 01/05/18 01/05/18 Unknown [ Vitamins Tablet] Ranitidine HCl [Acid Senior Quality Analyst] 150 mg PO DAILY 01/05/18 01/05/18 Unknown valACYclovir [Valtrex] 1 tab PO DAILY 01/05/18 01/05/18 Unknown Previous Rx's Medication Instructions Recorded Last Taken Type Ferrous Sulfate 325 mg PO BID #60 tablet. 01/07/18 Unknown Rx Ibuprofen [Motrin] 600 mg PO Q8H PRN #30 tablet 01/07/18 Unknown Rx oxyCODONE /ACETAMINOPHEN [Percocet 1 tab PO Q6HR PRN #20 tablet 01/07/18 Unknown Rx 5/325] Cyclobenzaprine [Flexeril] 10 mg PO TID PRN #30 tablet 01/08/18 Unknown Rx Amoxicillin/K Clav Tab [Augmentin 1 tab PO Q12HR #20 tab 04/08/18 Unknown Rx 875 mg] Ciprofloxacin 0.2%(Nf) 4 drops AD TID #1 droperette 04/08/18 Unknown Rx [Ciprofloxacin Otic 0.2%(Nf)] Promethazine [Phenergan TAB] 25 mg PO Q6HR PRN #20 tab 11/29/18 Unknown Rx Promethazine [Phenergan] 25 mg UT Q6HR PRN #14 supp.rect 11/29/18 Unknown Rx diphenhydrAMINE [Benadryl CAP] 25 mg PO Q6HR PRN #20 capsule 11/29/18 Unknown Rx traMADol [Ultram 50 MG tab] 50 mg PO Q6HR PRN #20 tablet 11/29/18 Unknown Rx Allergies Allergy/AdvReac Type Severity Reaction Status Date / Time ondansetron [From Zofran] Allergy Rash Verified 11/29/18 19:40 ED Review of Systems ROS: Stated complaint: N/V,WEAKNESS,HEADACHE Other details as noted in HPI Comment: All other systems reviewed and negative ED Past Medical Hx - Past Medical History Hx Hypertension: No Hx Congestive Heart Failure: No Hx Diabetes: No Hx Deep Vein Thrombosis: No Hx Renal Disease: No Hx Sickle Cell Disease: No Hx Seizures: No Hx Asthma: Yes Hx COPD: No Hx HIV: No Additional medical history: heart murmur - Surgical History Past Surgical History?: No - Social History Smoking Status: Never Smoker Substance Use Type: None - Medications Home Medications: Home Medications Medication Instructions Recorded Confirmed Last Taken Type Pnv No.95/Ferrous Fum/Folic AC 1 tab PO DAILY 01/05/18 01/05/18 Unknown History [ Vitamins Tablet] Ranitidine HCl [Acid Senior Quality Analyst] 150 mg PO DAILY 01/05/18 01/05/18 Unknown History valACYclovir [Valtrex] 1 tab PO DAILY 01/05/18 01/05/18 Unknown History Ferrous Sulfate 325 mg PO BID #60 tablet. 01/07/18 Unknown Rx Ibuprofen [Motrin] 600 mg PO Q8H PRN #30 tablet 01/07/18 Unknown Rx oxyCODONE /ACETAMINOPHEN [Percocet 1 tab PO Q6HR PRN #20 tablet 01/07/18 Unknown Rx 5/325] Cyclobenzaprine [Flexeril] 10 mg PO TID PRN #30 tablet 01/08/18 Unknown Rx Amoxicillin/K Clav Tab [Augmentin 1 tab PO Q12HR #20 tab 04/08/18 Unknown Rx 875 mg] Ciprofloxacin 0.2%(Nf) 4 drops AD TID #1 droperette 04/08/18 Unknown Rx [Ciprofloxacin Otic 0.2%(Nf)] Promethazine [Phenergan TAB] 25 mg PO Q6HR PRN #20 tab 11/29/18 Unknown Rx Promethazine [Phenergan] 25 mg UT Q6HR PRN #14 supp.rect 11/29/18 Unknown Rx diphenhydrAMINE [Benadryl CAP] 25 mg PO Q6HR PRN #20 capsule 11/29/18 Unknown Rx traMADol [Ultram 50 MG tab] 50 mg PO Q6HR PRN #20 tablet 11/29/18 Unknown Rx ED Physical Exam - General Limitations: No Limitations - Other Other exam information: General: No limitations, patient is alert in no acute distress Head exam: Atraumatic, normocephalic Eyes exam: Normal appearance, pupils equal reactive to light, extraocular movements intact ENT: Moist mucous membrane, normal oropharynx Neck exam: Normal inspection, full range of motion, no meningismus nontender Respiratory exam: Clear to auscultation bilateral, no wheezes, rales, crackles Cardiovascular: Normal rate and rhythm, normal heart sounds Abdomen: Soft, nondistended, mild generalized tenderness, with normal bowel sounds, no rebound, or guarding Extremity: Full range of motion normal inspection no deformity Back: Normal Inspection, full range of motion, no tenderness Neurologic: Alert, oriented x3, cranial nerves intact, no motor or sensory deficit Psychiatric: normal affect, normal mood Skin: Warm, dry, intact ED Course Vital Signs 11/29/18 11/29/18 11/29/18 14:15 14:58 15:01 Temperature 98.0 F Pulse Rate 97 H Respiratory 18 Rate Blood Pressure 149/71 147/70 O2 Sat by Pulse 100 100 100 Oximetry 11/29/18 11/29/18 11/29/18 15:15 15:30 15:45 Temperature Pulse Rate Respiratory Rate Blood Pressure 154/61 164/62 167/57 O2 Sat by Pulse 100 87 100 Oximetry 11/29/18 11/29/18 16:01 16:09 Temperature 99.0 F Pulse Rate Respiratory 20 Rate Blood Pressure 152/72 O2 Sat by Pulse 99 100 Oximetry ED Medical Decision Making - Lab Data Result diagrams: 11/29/18 14:28 11/29/18 14:28 Lab Results 11/29/18 11/29/18 11/29/18 Range/Units 14:28 14:28 17:17 WBC 6.8 (4.5-11.0) K/mm3 RBC 4.66 (3.65-5.03) M/mm3 Hgb 12.6 (10.1-14.3) gm/dl Hct 38.4 (30.3-42.9) % MCV 82 (79-97) fl MCH 27 L (28-32) pg MCHC 33 (30-34) % RDW 15.2 (13.2-15.2) % Plt Count 254 (140-440) K/mm3 Lymph % (Auto) 17.9 (13.4-35.0) % [place] % (Auto) 5.9 (0.0-7.3) % Eos % (Auto) 0.3 (0.0-4.3) % Baso % (Auto) 0.3 (0.0-1.8) % Lymph # 1.2 (1.2-5.4) K/mm3 [place] # 0.4 (0.0-0.8) K/mm3 Eos # 0.0 (0.0-0.4) K/mm3 Baso # 0.0 (0.0-0.1) K/mm3 Seg Neutrophils % 75.6 H (40.0-70.0) % Seg Neutrophils # 5.2 (1.8-7.7) K/mm3 Sodium 140 (137-145) mmol/L Potassium 4.3 (3.6-5.0) mmol/L Chloride 104.3 (98-107) mmol/L Carbon Dioxide 23 (22-30) mmol/L Anion Gap 17 mmol/L BUN 8 (7-17) mg/dL Creatinine 0.5 L (0.7-1.2) mg/dL Estimated GFR > 60 ml/min BUN/Creatinine Ratio 16 % Glucose 97 (65-100) mg/dL Calcium 9.5 (8.4-10.2) mg/dL Total Bilirubin 0.60 (0.1-1.2) mg/dL Direct Bilirubin < 0.2 (0-0.2) mg/dL Indirect Bilirubin 0.4 mg/dL AST < 5 L (5-40) units/L ALT < 5 L (7-56) units/L Alkaline Phosphatase 85 (35-129) units/L Total Protein 6.6 (6.3-8.2) g/dL Albumin 3.9 (3.9-5) g/dL Albumin/Globulin Ratio 1.4 % Amylase 43 (27-131) units/L Lipase 20 (13-60) units/L HCG, Qual (Negative) Urine Color (Yellow) Urine Turbidity (Clear) Urine pH (5.0-7.0) Ur Specific [place] (1.003-1.030) Urine Protein (Negative) mg/dL Urine Glucose (UA) (Negative) mg/dL Urine Ketones (Negative) mg/dL Urine Blood (Negative) Urine Nitrite (Negative) Urine Bilirubin (Negative) Urine Urobilinogen (<2.0) mg/dL Ur Leukocyte Esterase (Negative) Urine WBC (Auto) (0.0-6.0) /HPF Urine RBC (Auto) (0.0-6.0) /HPF U Epithel Cells (Auto) (0-13.0) /HPF Urine Mucus /HPF 11/29/18 11/29/18 Range/Units 17:22 18:00 WBC (4.5-11.0) K/mm3 RBC (3.65-5.03) M/mm3 Hgb (10.1-14.3) gm/dl Hct (30.3-42.9) % MCV (79-97) fl MCH (28-32) pg MCHC (30-34) % RDW (13.2-15.2) % Plt Count (140-440) K/mm3 Lymph % (Auto) (13.4-35.0) % [place] % (Auto) (0.0-7.3) % Eos % (Auto) (0.0-4.3) % Baso % (Auto) (0.0-1.8) % Lymph # (1.2-5.4) K/mm3 [place] # (0.0-0.8) K/mm3 Eos # (0.0-0.4) K/mm3 Baso # (0.0-0.1) K/mm3 Seg Neutrophils % (40.0-70.0) % Seg Neutrophils # (1.8-7.7) K/mm3 Sodium (137-145) mmol/L Potassium (3.6-5.0) mmol/L Chloride (98-107) mmol/L Carbon Dioxide (22-30) mmol/L Anion Gap mmol/L BUN (7-17) mg/dL Creatinine (0.7-1.2) mg/dL Estimated GFR ml/min BUN/Creatinine Ratio % Glucose (65-100) mg/dL Calcium (8.4-10.2) mg/dL Total Bilirubin (0.1-1.2) mg/dL Direct Bilirubin (0-0.2) mg/dL Indirect Bilirubin mg/dL AST (5-40) units/L ALT (7-56) units/L Alkaline Phosphatase (35-129) units/L Total Protein (6.3-8.2) g/dL Albumin (3.9-5) g/dL Albumin/Globulin Ratio % Amylase (27-131) units/L Lipase (13-60) units/L HCG, Qual Negative (Negative) Urine Color Yellow (Yellow) Urine Turbidity Clear (Clear) Urine pH 7.0 (5.0-7.0) Ur Specific [place] 1.014 (1.003-1.030) Urine Protein <15 mg/dl (Negative) mg/dL Urine Glucose (UA) Neg (Negative) mg/dL Urine Ketones Neg (Negative) mg/dL Urine Blood Neg (Negative) Urine Nitrite Neg (Negative) Urine Bilirubin Neg (Negative) Urine Urobilinogen 2.0 (<2.0) mg/dL Ur Leukocyte Esterase Neg (Negative) Urine WBC (Auto) 1.0 (0.0-6.0) /HPF Urine RBC (Auto) 1.0 (0.0-6.0) /HPF U Epithel Cells (Auto) < 1.0 (0-13.0) /HPF Urine Mucus Few /HPF - Medical Decision Making After receiving initial dose of medication patient developed a pruritic rash. Patient had just received IV Zofran and Pepcid prior to onset. No shortness of breath, throat swelling, or wheezing. Symptoms improved after Solu-Medrol and Benadryl. Patient received normal saline in the ED and is tolerating by mouth intake and feeling better prior to discharge. - Differential Diagnosis gastroenteritis, appendicitis, biliary colic, viral syndrome Critical Care Time: No Critical care attestation.: If time is entered above; I have spent that time in minutes in the direct care of this critically ill patient, excluding procedure time. ED Disposition Clinical Impression: Gastroenteritis, Drug allergy Disposition: [id number] TO HOME OR SELFCARE Is pt being admited?: No Does the pt Need Aspirin: No Condition: Stable Instructions: Gastroenteritis (ED), Allergies (ED) Additional Instructions: Take the medication as prescribed. Follow up with your doctor or the clinic/doctor provided. Return if symptoms worsen as indicated by your discharge instructions You had an allergic reaction to medication provided in the ER. It is reaction started after receiving her IV Zofran and IV Pepcid. It is unclear at this time which is these medications you are allergic to but your symptoms seemed to start after Zofran injection. You have been prescribed Phenergan for nausea either by mouth or by rectum depending on how bad you are vomiting Prescriptions: diphenhydrAMINE [Benadryl CAP] 25 mg PO Q6HR PRN #20 capsule PRN Reason: Allergic Reaction Promethazine [Phenergan] 25 mg UT Q6HR PRN #14 supp.rect PRN Reason: Vomiting Promethazine [Phenergan TAB] 25 mg PO Q6HR PRN #20 tab PRN Reason: Nausea traMADol [Ultram 50 MG tab] 50 mg PO Q6HR PRN #20 tablet PRN Reason: Pain Referrals: TASIA CHAIDEZ MD [Primary Care Provider] - 3-5 Days Forms: Work/School Release Form(ED) Time of Disposition: 19:42
[2018-11-29 19:32] VITALS: BP 126/51
== END 2018-11-29 20:15 | disposition home or self-care (01) ==
LOC: ED 13:28
DX: K52.9 Noninfective gastroenteritis and colitis, unspecified (principal); J45.909 Unspecified asthma, uncomplicated; Z88.8 Allergy status to other drugs, medicaments and biological substances
CPT/HCPCS: 36415; 80048; 80076; 81001; 82150; 83690; 84703; 85025; 96361; 96374; 96375; 99283; J1200; J2405; J2930; J7030

== ENCOUNTER 2018-12-04 02:26 | Emergency (ER) | payer SELFPAY ==
[2018-12-04 02:56] VITALS: BP 130/72
--- NOTE | 2018-12-04 03:51 | Emergency Department Report ---
ED ENT HPI - General Chief complaint: Dental/Oral Stated complaint: TOOTHACHE Time Seen by Provider: 12/04/18 03:40 Source: patient Mode of arrival: Ambulatory Limitations: No Limitations - History of Present Illness Initial comments: Pt is a 23 yo female who presents to the ED with c/o left lower dental pain that began 1 week ago. She states she has a cracked tooth on the left lower side. She denies any facial swelling or fever. The patient states she has been taking ibuprofen and tramadol without relief. She has not seen a dentist due to lack of insurance. - Related Data Home Medications Medication Instructions Recorded Confirmed Last Taken Pnv No.95/Ferrous Fum/Folic AC 1 tab PO DAILY 01/05/18 01/05/18 Unknown [ Vitamins Tablet] Ranitidine HCl [Acid School Services Officer] 150 mg PO DAILY 01/05/18 01/05/18 Unknown valACYclovir [Valtrex] 1 tab PO DAILY 01/05/18 01/05/18 Unknown Previous Rx's Medication Instructions Recorded Last Taken Type Ferrous Sulfate 325 mg PO BID #60 tablet.dr 01/07/18 Unknown Rx Promethazine [Phenergan SUPPOS] 25 mg [place] Q6HR PRN #14 supp.rect 11/29/18 Unknown Rx Promethazine [Phenergan TAB] 25 mg PO Q6HR PRN #20 tab 11/29/18 Unknown Rx diphenhydrAMINE [Benadryl CAP] 25 mg PO Q6HR PRN #20 capsule 11/29/18 Unknown Rx traMADol [Ultram 50 MG tab] 50 mg PO Q6HR PRN #20 tablet 11/29/18 Unknown Rx Acetaminophen/Codeine [Tylenol 1 tab PO Q6H PRN #10 tab 12/04/18 Unknown Rx /Codeine # 3 tab] Amoxicillin/K Clav Tab [Augmentin 1 tab PO Q12HR #20 tab 12/04/18 Unknown Rx 875MG TAB] Ibuprofen [Motrin 600 MG tab] 600 mg PO Q8H PRN #30 tablet 12/04/18 Unknown Rx Allergies Allergy/AdvReac Type Severity Reaction Status Date / Time ondansetron [From Zofran] Allergy Rash Verified 11/29/18 19:40 ED Dental HPI - General Chief complaint: Dental/Oral Stated complaint: TOOTHACHE Time Seen by Provider: 12/04/18 03:40 Source: patient Mode of arrival: Ambulatory Limitations: No Limitations - Related Data Home Medications Medication Instructions Recorded Confirmed Last Taken Pnv No.95/Ferrous Fum/Folic AC 1 tab PO DAILY 01/05/18 01/05/18 Unknown [ Vitamins Tablet] Ranitidine HCl [Acid School Services Officer] 150 mg PO DAILY 01/05/18 01/05/18 Unknown valACYclovir [Valtrex] 1 tab PO DAILY 01/05/18 01/05/18 Unknown Previous Rx's Medication Instructions Recorded Last Taken Type Ferrous Sulfate 325 mg PO BID #60 tablet.dr 01/07/18 Unknown Rx Promethazine [Phenergan SUPPOS] 25 mg [place] Q6HR PRN #14 supp.rect 11/29/18 Unknown Rx Promethazine [Phenergan TAB] 25 mg PO Q6HR PRN #20 tab 11/29/18 Unknown Rx diphenhydrAMINE [Benadryl CAP] 25 mg PO Q6HR PRN #20 capsule 11/29/18 Unknown Rx traMADol [Ultram 50 MG tab] 50 mg PO Q6HR PRN #20 tablet 11/29/18 Unknown Rx Acetaminophen/Codeine [Tylenol 1 tab PO Q6H PRN #10 tab 12/04/18 Unknown Rx /Codeine # 3 tab] Amoxicillin/K Clav Tab [Augmentin 1 tab PO Q12HR #20 tab 12/04/18 Unknown Rx 875MG TAB] Ibuprofen [Motrin 600 MG tab] 600 mg PO Q8H PRN #30 tablet 12/04/18 Unknown Rx Allergies Allergy/AdvReac Type Severity Reaction Status Date / Time ondansetron [From Zofran] Allergy Rash Verified 11/29/18 19:40 ED Review of Systems ROS: Stated complaint: TOOTHACHE Other details as noted in HPI Comment: All other systems reviewed and negative ED Past Medical Hx - Past Medical History Previous Medical History?: Yes Hx Hypertension: No Hx Congestive Heart Failure: No Hx Diabetes: No Hx Deep Vein Thrombosis: No Hx Renal Disease: No Hx Sickle Cell Disease: No Hx Seizures: No Hx Asthma: Yes Hx COPD: No Hx HIV: No Additional medical history: heart murmur - Surgical History Past Surgical History?: No - Social History Smoking Status: Never Smoker Substance Use Type: None - Medications Home Medications: Home Medications Medication Instructions Recorded Confirmed Last Taken Type Pnv No.95/Ferrous Fum/Folic AC 1 tab PO DAILY 01/05/18 01/05/18 Unknown History [ Vitamins Tablet] Ranitidine HCl [Acid [employer] Services Officer] 150 mg PO DAILY 01/05/18 01/05/18 Unknown History valACYclovir [Valtrex] 1 tab PO DAILY 01/05/18 01/05/18 Unknown History Ferrous Sulfate 325 mg PO BID #60 tablet.dr 01/07/18 Unknown Rx Promethazine [Phenergan SUPPOS] 25 mg [place] Q6HR PRN #14 supp.rect 11/29/18 Unknown Rx Promethazine [Phenergan TAB] 25 mg PO Q6HR PRN #20 tab 11/29/18 Unknown Rx diphenhydrAMINE [Benadryl CAP] 25 mg PO Q6HR PRN #20 capsule 11/29/18 Unknown Rx traMADol [Ultram 50 MG tab] 50 mg PO Q6HR PRN #20 tablet 11/29/18 Unknown Rx Acetaminophen/Codeine [Tylenol 1 tab PO Q6H PRN #10 tab 12/04/18 Unknown Rx /Codeine # 3 tab] Amoxicillin/K Clav Tab [Augmentin 1 tab PO Q12HR #20 tab 12/04/18 Unknown Rx 875MG TAB] Ibuprofen [Motrin 600 MG tab] 600 mg PO Q8H PRN #30 tablet 12/04/18 Unknown Rx ED Physical Exam - General Limitations: No Limitations General appearance: alert, in no apparent distress - Head Head exam: Present: atraumatic, normocephalic - Eye Eye exam: Present: normal appearance - ENT ENT exam: Present: mucous membranes moist, other (left lower molar is cracked in half exposed to the pulp, missing the other left lower molar, no obvious abscess, no facial edema, uvula is midline) ED Course Vital Signs 12/04/18 12/04/18 02:33 04:00 Temperature 98.2 F Pulse Rate 89 78 Respiratory 18 18 Rate Blood Pressure 130/72 O2 Sat by Pulse 98 100 Oximetry ED Medical Decision Making - Medical Decision Making Pt is a 23 yo female who presents with left lower dental pain that began a week ago. She has a cracked tooth that extends into the pulp with half of the tooth missing, she is also missing another molar. No obvious abscess, no fever, no facial edema. Will give pt list of dental clinics and community resources. Advised to take medication as prescribed. Needs to see dentist JOHNATHAN. Return to the ED for any new or worsening symptoms. Critical care attestation.: If time is entered above; I have spent that time in minutes in the direct care of this critically ill patient, excluding procedure time. ED Disposition Clinical Impression: Pain, dental, Cracked tooth Disposition: TO HOME OR SELFCARE Is pt being admited?: No Does the pt Need Aspirin: No Condition: Stable Instructions: Dental Caries (ED), Toothache (ED) Additional Instructions: Follow up with a dentist JOHNATHAN. Take all medication as prescribed. Return to the emergency room for any new or worsening symptoms. Prescriptions: Amoxicillin/K Clav Tab [Augmentin 875MG TAB] 1 tab PO Q12HR #20 tab Ibuprofen [Motrin 600 MG tab] 600 mg PO Q8H PRN #30 tablet PRN Reason: Pain Acetaminophen/Codeine [Tylenol /Codeine # 3 tab] 1 tab PO Q6H PRN #10 tab PRN Reason: Pain, Moderate (4-6) Referrals: TASIA CHAIDEZ MD [Primary Care Provider] - JOHNATHAN Forms: Accompanied Note, Work/School Release Form(ED) Time of Disposition: 03:52 Print Language: DJIBOUTIAN
== END 2018-12-04 04:00 | disposition home or self-care (01) ==
LOC: ED 02:26
DX: K03.81 Cracked tooth (principal); J45.909 Unspecified asthma, uncomplicated; Z79.899 Other long term (current) drug therapy
CPT/HCPCS: 99282

== ENCOUNTER 2021-03-18 12:05 | Emergency (ER) | payer MEDICAID ==
[2021-03-18] MEDS ORDERED: CYCLOBENZAPRINE 10 MG TAB PO ONE (12:59)
[2021-03-18] MEDS ORDERED: KETOROLAC 60 MG/2 ML INJ IM ONE (12:59)
[2021-03-18] MEDS ORDERED: HYDROcodone/ACETAMINOPHEN 10-325MG TAB PO ONE (12:59)
--- NOTE | 2021-03-18 13:00 | Emergency Department Report ---
ED General Adult HPI - General Chief complaint: Back Pain/Injury Stated complaint: SEVERE UPPER BACK PAIN Time Seen by Provider: 03/18/21 12:38 Source: patient Mode of arrival: Wheelchair Limitations: No Limitations - History of Present Illness Initial comments: 26-year-old -[place] female patient presents with complaints of sudden onset of mid upper back pain radiating to the left side of her chest started 4 days ago. She denies any injuries or heavy lifting. She states the pain began upon waking. she rates her pain as 10/10 in severity states it worsens with inspiration, movement of the spine, and movement of her arms. She describes the pain as a stabbing and aching pain, but denies any ripping tearing type pain. No past medical history per patient. She admits to a 4-hour plane ride approximately 2 weeks ago, but denies any leg pain/swelling, hormone use, history of DVT/PE/cancer, cough, or hemoptysis. She also denies any f ever/chills/sweats - Related Data Home Medications Medication Instructions Recorded Confirmed Last Taken Pnv No.95/Ferrous Fum/Folic AC 1 tab PO DAILY 01/05/18 01/05/18 Unknown [ Vitamins Tablet] raNITIdine HCl [Acid Bell Maker] 150 mg PO DAILY 01/05/18 01/05/18 Unknown valACYclovir [Valtrex] 1 tab PO DAILY 01/05/18 01/05/18 Unknown Previous Rx's Medication Instructions Recorded Last Taken Type Ferrous Sulfate 325 mg PO BID #60 tablet. 01/07/18 Unknown Rx Promethazine [Phenergan SUPPOS] 25 mg [place] Q6HR PRN #14 supp.rect 11/29/18 Unknown Rx Promethazine [Phenergan] 25 mg PO Q6HR PRN #20 tab 11/29/18 Unknown Rx diphenhydrAMINE [Benadryl CAP] 25 mg PO Q6HR PRN #20 capsule 11/29/18 Unknown Rx traMADoL [Ultram 50 MG tab] 50 mg PO Q6HR PRN #20 tablet 11/29/18 Unknown Rx Acetaminophen/Codeine [Tylenol 1 tab PO Q6H PRN #10 tab 12/04/18 Unknown Rx /Codeine # 3 tab] Amoxicillin/K Clav Tab [Augmentin 1 tab PO Q12HR #20 tab 12/04/18 Unknown Rx 875MG TAB] Ibuprofen [Motrin 600 MG tab] 600 mg PO Q8H PRN #30 tablet 12/04/18 Unknown Rx Naproxen 500 mg PO BID PRN #20 tablet 03/18/21 Unknown Rx methocarbamoL [Methocarbamol] 750 - 1,500 mg PO TID PRN #24 03/18/21 Unknown Rx tablet predniSONE [Deltasone] 20 mg PO BID 3 Days #6 tab 03/18/21 Unknown Rx Allergies Allergy/AdvReac Type Severity Reaction Status Date / Time ondansetron [From Zofran] Allergy Rash Verified 03/18/21 12:09 ED Review of Systems ROS: Stated complaint: SEVERE UPPER BACK PAIN Other details as noted in HPI Constitutional: denies: chills, fever, malaise Respiratory: denies: cough, shortness of breath Cardiovascular: as per HPI. denies: edema, syncope Endocrine: denies: excessive sweating Gastrointestinal: denies: abdominal pain Neurological: denies: headache ED Past Medical Hx - Past Medical History Hx Hypertension: No Hx Congestive Heart Failure: No Hx Diabetes: No Hx Deep Vein Thrombosis: No Hx Renal Disease: No Hx Sickle Cell Disease: No Hx Seizures: No Hx Asthma: No Hx COPD: No Hx HIV: No Additional medical history: heart murmur - Surgical History Past Surgical History?: No - Social History Smoking Status: Never Smoker Substance Use Type: None - Medications Home Medications: Home Medications Medication Instructions Recorded Confirmed Last Taken Type Pnv No.95/Ferrous Fum/Folic AC 1 tab PO DAILY 01/05/18 01/05/18 Unknown History [ Vitamins Tablet] raNITIdine HCl [Acid Bell Maker] 150 mg PO DAILY 01/05/18 01/05/18 Unknown History valACYclovir [Valtrex] 1 tab PO DAILY 01/05/18 01/05/18 Unknown History Ferrous Sulfate 325 mg PO BID #60 tablet. 01/07/18 Unknown Rx Promethazine [Phenergan SUPPOS] 25 mg [place] Q6HR PRN #14 supp.rect 11/29/18 Unknown Rx Promethazine [Phenergan] 25 mg PO Q6HR PRN #20 tab 11/29/18 Unknown Rx diphenhydrAMINE [Benadryl CAP] 25 mg PO Q6HR PRN #20 capsule 11/29/18 Unknown Rx traMADoL [Ultram 50 MG tab] 50 mg PO Q6HR PRN #20 tablet 11/29/18 Unknown Rx Acetaminophen/Codeine [Tylenol 1 tab PO Q6H PRN #10 tab 12/04/18 Unknown Rx /Codeine # 3 tab] Amoxicillin/K Clav Tab [Augmentin 1 tab PO Q12HR #20 tab 12/04/18 Unknown Rx 875MG TAB] Ibuprofen [Motrin 600 MG tab] 600 mg PO Q8H PRN #30 tablet 12/04/18 Unknown Rx Naproxen 500 mg PO BID PRN #20 tablet 03/18/21 Unknown Rx methocarbamoL [Methocarbamol] 750 - 1,500 mg PO TID PRN #24 03/18/21 Unknown Rx tablet predniSONE [Deltasone] 20 mg PO BID 3 Days #6 tab 03/18/21 Unknown Rx ED Physical Exam - General Limitations: No Limitations General appearance: alert, anxious (Patient appears uncomfortable), obese - Head Head exam: Present: atraumatic, normocephalic - Eye Eye exam: Present: normal appearance. Absent: scleral icterus - Respiratory Respiratory exam: Present: normal lung sounds bilaterally. Absent: respiratory distress, chest wall tenderness - Cardiovascular Cardiovascular Exam: Present: regular rate, normal rhythm - GI/Abdominal GI/Abdominal exam: Present: soft. Absent: tenderness - Extremities Exam Extremities exam: Present: full ROM - Back Exam Back exam: Present: full ROM, paraspinal tenderness (Left upper thoracic), vertebral tenderness (Upper thoracic) - Neurological Exam Neurological exam: Present: alert, oriented X3, normal gait - Psychiatric Psychiatric exam: Present: normal affect, anxious - Skin Skin exam: Present: warm, dry, intact, normal color. Absent: rash, cyanosis, diaphoretic ED Course Vital Signs 03/18/21 03/18/21 03/18/21 12:11 13:09 15:55 Temperature 98.4 F Pulse Rate 67 66 Respiratory 18 16 18 Rate Blood Pressure 141/74 Blood Pressure 117/76 [Left] O2 Sat by Pulse 100 98 Oximetry ED Medical Decision Making - Lab Data Result diagrams: 03/18/21 14:33 03/18/21 14:33 Lab Results 03/18/21 03/18/21 03/18/21 Range/Units 14:33 14:33 14:33 WBC 7.7 (4.5-11.0) K/mm3 RBC 4.28 (3.65-5.03) M/mm3 Hgb 12.0 (10.1-14.3) gm/dl Hct 36.3 (30.3-42.9) % MCV 85 (79-97) fl MCH 28 (28-32) pg MCHC 33 (30-34) % RDW 14.4 (13.2-15.2) % Plt Count 257 (140-440) K/mm3 Lymph % (Auto) 42.2 H (13.4-35.0) % Loving % (Auto) 6.8 (0.0-7.3) % Eos % (Auto) 1.3 (0.0-4.3) % Baso % (Auto) 0.8 (0.0-1.8) % Lymph # (Auto) 3.2 (1.2-5.4) K/mm3 Loving # (Auto) 0.5 (0.0-0.8) K/mm3 Eos # (Auto) 0.1 (0.0-0.4) K/mm3 Baso # (Auto) 0.1 (0.0-0.1) K/mm3 Seg Neutrophils % 48.9 (40.0-70.0) % Seg Neutrophils # 3.7 (1.8-7.7) K/mm3 D-Dimer 194.66 (0-234) ng/mlDDU Sodium 137 (137-145) mmol/L Potassium 4.6 (3.6-5.0) mmol/L Chloride 102.6 (98-107) mmol/L Carbon Dioxide 23 (22-30) mmol/L Anion Gap 16 mmol/L BUN 8 (7-17) mg/dL Creatinine 0.5 L (0.6-1.2) mg/dL Estimated GFR > 60 ml/min BUN/Creatinine Ratio 16 % Glucose 86 (65-100) mg/dL Calcium 9.4 (8.4-10.2) mg/dL Total Bilirubin 0.30 (0.1-1.2) mg/dL AST 18 (5-40) units/L ALT 16 (7-56) units/L Alkaline Phosphatase 86 (35-129) units/L Troponin T < 0.010 (0.00-0.029) ng/mL Total Protein 6.8 (6.3-8.2) g/dL Albumin 4.3 (3.9-5) g/dL Albumin/Globulin Ratio 1.7 % - Radiology Data Radiology results: report reviewed CHEST 2 VIEWS INDICATION / CLINICAL INFORMATION: mid thoracic pain. COMPARISON: None available. FINDINGS: SUPPORT DEVICES: None. HEART / MEDIASTINUM: No significant abnormality. LUNGS / PLEURA: No significant pulmonary or pleural abnormality. No pneum othorax. ADDITIONAL FINDINGS: No significant additional findings. IMPRESSION: 1. No acute findings. - Medical Decision Making 26-year-old -[place] female patient presents with complaints of sudden onset of mid upper back pain radiating to the left side of her chest started 4 days ago. She denies any injuries or heavy lifting. She states the pain began upon waking. she rates her pain as 10/10 in severity states it worsens with inspiration, movement of the spine, and movement of her arms. She describes the pain as a stabbing and aching pain, but denies any ripping tearing type pain. No past medical history per patient. She admits to a 4-hour plane ride approximately 2 weeks ago, but denies any leg pain/swelling, hormone use, history of DVT/PE/cancer, cough, or hemoptysis. She also denies any fever/chills/sweats No significant abnormalities noted on CBC or CMP. Chest x-ray is normal. Dimer is negative. Patient pain improved with meds given here in ED and she has full range of motion of the spine. No further vertebral tenderness to palpation noted or obvious deformity on exam. She is well-appearing and stable for discharge home. We will treat for back strain/spasm. She is to follow-up with her primary care doctor within 3 days. Strict return precautions were discussed in great detail with patient verbalizes understanding. Critical care attestation.: If time is entered above; I have spent that time in minutes in the direct care of this critically ill patient, excluding procedure time. ED Disposition Clinical Impression: Back pain Disposition: DC-01 TO HOME OR SELFCARE Is pt being admited?: No Condition: Stable Instructions: Muscle Cramps and Spasms, [id number], Thoracic Strain Prescriptions: predniSONE [Deltasone] 20 mg PO BID 3 Days #6 tab methocarbamoL [Methocarbamol] 750 - 1,500 mg PO TID PRN #24 tablet PRN Reason: muscle spasm/tightness Naproxen 500 mg PO BID PRN #20 tablet PRN Reason: pain Referrals: PRIMARY CARE, [Primary Care Provider] - 3-5 Days Time of Disposition: 15:26
--- NOTE | 2021-03-18 14:52 | XRay Report ---
CHEST 2 VIEWS INDICATION / CLINICAL INFORMATION: mid thoracic pain. COMPARISON: None available. FINDINGS: SUPPORT DEVICES: None. HEART / MEDIASTINUM: No significant abnormality. LUNGS / PLEURA: No significant pulmonary or pleural abnormality. No pneumothorax. ADDITIONAL FINDINGS: No significant additional findings. IMPRESSION: 1. No acute findings. Signer Name: Gilbert Pacheco MD Signed: 03/18/2021 2:48 PM Workstation Name: [id number]
[2021-03-18 14:53] LABS: Basophils # (Auto) 0.1 K/mm3 (0.0-0.1); Basophils % (Auto) 0.8 % (0.0-1.8); Eosinophils # (Auto) 0.1 K/mm3 (0.0-0.4); Eosinophils % (Auto) 1.3 % (0.0-4.3); Hematocrit 36.3 % (30.3-42.9); Lymphocytes # (Auto) 3.2 K/mm3 (1.2-5.4); Lymphocytes % (Auto) 42.2 % (13.4-35.0); Mean Corpuscular HGB Conc 33 % (30-34); Mean Corpuscular Volume 85 fl (79-97); Monocytes # (Auto) 0.5 K/mm3 (0.0-0.8); Monocytes % (Auto) 6.8 % (0.0-7.3); Platelet Count 257 K/mm3 (140-440); Red Blood Count 4.28 M/mm3 (3.65-5.03); Red Cell Distribution Width 14.4 % (13.2-15.2)
[2021-03-18 15:12] LABS: Alanine Aminotransferase 16 units/L (7-56); Albumin 4.3 g/dL (3.9-5); Blood Urea Nitrogen 8 mg/dL (7-17); Calcium 9.4 mg/dL (8.4-10.2); Hemolysis Index 34
[2021-03-18 15:13] LABS: BUN/Creatinine Ratio 16
[2021-03-18 15:57] VITALS: BP 117/76
== END 2021-03-18 15:56 | disposition home or self-care (01) ==
LOC: ED 12:05
DX: M54.6 Pain in thoracic spine (principal); Z79.899 Other long term (current) drug therapy; Z88.8 Allergy status to other drugs, medicaments and biological substances
CPT/HCPCS: 36415; 71046; 80053; 84484; 85025; 85379; 96372; 99283; J1885

== ENCOUNTER 2021-08-08 18:07 | Emergency (ER) | payer MEDICAID ==
[2021-08-08] MEDS ORDERED: diphenhydrAMINE 50 MG/ML VIAL IV ONE (18:47)
[2021-08-08] MEDS ORDERED: METOCLOPRAMIDE 10 MG/2 ML INJ IV ONE (18:47)
[2021-08-08] MEDS ORDERED: LACTATED RINGERS 1,000 ML IV ONE (18:47)
--- NOTE | 2021-08-08 18:56 | Emergency Department Report ---
ED General Adult HPI - General Chief complaint: Upper Respiratory Infection Stated complaint: COLD AND COVID SX'S Time Seen by Provider: 08/08/21 18:22 Source: patient Mode of arrival: Ambulatory Limitations: No Limitations - History of Present Illness Initial comments: 26-year-old -[place] female patient presents to the ED with complaints of sore throat, cough, nasal congestion, and intermittent lower abdominal cramping. Patient states she is 8 weeks and following with [facility]. She also admits to a couple episodes of vomiting without hematemesis/coffee-ground emesis. No vaginal bleeding, dysuria/urinary frequenc y, vaginal discharge/dyspareunia. No fever, but she admits to chills. She is not vaccinated for COVID-19. She also denies any loss of taste or smell. She rates her throat pain as a 7/10 in severity - Related Data Home Medications Medication Instructions Recorded Confirmed Last Taken Pnv No.95/Ferrous Fum/Folic AC 1 tab PO DAILY 01/05/18 08/08/21 Unknown [ Vitamins Tablet] raNITIdine HCl [Acid Information Technology Project Manager] 150 mg PO DAILY 01/05/18 08/08/21 Unknown valACYclovir [Valtrex] 1 tab PO DAILY 01/05/18 08/08/21 Unknown Previous Rx's Medication Instructions Recorded Last Taken Type Ferrous Sulfate 325 mg PO BID #60 tablet. 01/07/18 Unknown Rx Promethazine [Phenergan SUPPOS] 25 mg ND Q6HR PRN #14 supp.rect 11/29/18 Unknown Rx Promethazine [Phenergan] 25 mg PO Q6HR PRN #20 tab 11/29/18 Unknown Rx diphenhydrAMINE [Benadryl CAP] 25 mg PO Q6HR PRN #20 capsule 11/29/18 Unknown Rx traMADoL [Ultram 50 MG tab] 50 mg PO Q6HR PRN #20 tablet 11/29/18 Unknown Rx Acetaminophen/Codeine [Tylenol 1 tab PO Q6H PRN #10 tab 12/04/18 Unknown Rx /Codeine # 3 tab] Amoxicillin/K Clav Tab [Augmentin 1 tab PO Q12HR #20 tab 12/04/18 Unknown Rx 875MG TAB] Ibuprofen [Motrin 600 MG tab] 600 mg PO Q8H PRN #30 tablet 12/04/18 Unknown Rx Naproxen 500 mg PO BID PRN #20 tablet 03/18/21 Unknown Rx methocarbamoL [Methocarbamol] 750 - 1,500 mg PO TID PRN #24 03/18/21 Unknown Rx tablet predniSONE [Deltasone] 20 mg PO BID 3 Days #6 tab 03/18/21 Unknown Rx Allergies Allergy/AdvReac Type Severity Reaction Status Date / Time ondansetron [From Zofran] Allergy Rash Verified 08/08/21 20:35 ED Review of Systems ROS: Stated complaint: COLD AND COVID SX'S Other details as noted in HPI Constitutional: chills. denies: diaphoresis, fever, malaise, weakness ENT: throat pain Respiratory: cough. denies: shortness of breath Cardiovascular: denies: chest pain Gastrointestinal: abdominal pain, nausea, vomiting. denies: diarrhea, constipation, hematemesis, melena, hematochezia Genitourinary: denies: urgency, dysuria, frequency, hematuria, discharge Skin: denies: lesions, change in color Neurological: headache. denies: numbness, paresthesias, abnormal gait ED Past Medical Hx - Past Medical History Hx Hypertension: No Hx Congestive Heart Failure: No Hx Diabetes: No Hx Deep Vein Thrombosis: No Hx Renal Disease: No Hx Sickle Cell Disease: No Hx Seizures: No Hx Asthma: No Hx COPD: No Hx HIV: No Additional medical history: heart murmur - Social History Smoking Status: Never Smoker Substance Use Type: None - Medications Home Medications: Home Medications Medication Instructions Recorded Confirmed Last Taken Type Pnv No.95/Ferrous Fum/Folic AC 1 tab PO DAILY 01/05/18 08/08/21 Unknown History [ Vitamins Tablet] raNITIdine HCl [Acid Information Technology Project Manager] 150 mg PO DAILY 01/05/18 08/08/21 Unknown History valACYclovir [Valtrex] 1 tab PO DAILY 01/05/18 08/08/21 Unknown History Ferrous Sulfate 325 mg PO BID #60 tablet. 01/07/18 08/08/21 Unknown Rx Promethazine [Phenergan SUPPOS] 25 mg ND Q6HR PRN #14 supp.rect 11/29/18 08/08/21 Unknown Rx Promethazine [Phenergan] 25 mg PO Q6HR PRN #20 tab 11/29/18 08/08/21 Unknown Rx diphenhydrAMINE [Benadryl CAP] 25 mg PO Q6HR PRN #20 capsule 11/29/18 08/08/21 Unknown Rx traMADoL [Ultram 50 MG tab] 50 mg PO Q6HR PRN #20 tablet 11/29/18 08/08/21 Unknown Rx Acetaminophen/Codeine [Tylenol 1 tab PO Q6H PRN #10 tab 12/04/18 08/08/21 Unknown Rx /Codeine # 3 tab] Amoxicillin/K Clav Tab [Augmentin 1 tab PO Q12HR #20 tab 12/04/18 08/08/21 Unknown Rx 875MG TAB] Ibuprofen [Motrin 600 MG tab] 600 mg PO Q8H PRN #30 tablet 12/04/18 08/08/21 Unknown Rx Naproxen 500 mg PO BID PRN #20 tablet 03/18/21 08/08/21 Unknown Rx methocarbamoL [Methocarbamol] 750 - 1,500 mg PO TID PRN #24 03/18/21 08/08/21 Unknown Rx tablet predniSONE [Deltasone] 20 mg PO BID 3 Days #6 tab 03/18/21 08/08/21 Unknown Rx ED Physical Exam - General Limitations: No Limitations General appearance: alert, in no apparent distress, obese - Head Head exam: Present: atraumatic, normocephalic - Eye Eye exam: Present: normal appearance - Expanded ENT Exam Expanded Throat exam: Positive: tonsillar erythema, tonsillomegaly (Mild bilateral mild bilateral), other (Uvula is midline). Negative: tonsillar exudate, R peritonsillar mass, L peritonsillar mass - Neck Neck exam: Present: normal inspection, full ROM. Absent: lymphadenopathy - Respiratory Respiratory exam: Present: normal lung sounds bilaterally. Absent: respiratory distress - Cardiovascular Cardiovascular Exam: Present: regular rate, normal rhythm - GI/Abdominal GI/Abdominal exam: Present: soft, normal bowel sounds. Absent: distended, tenderness, guarding, rebound, rigid - Neurological Exam Neurological exam: Present: alert, oriented X3, CN II-XII intact, normal gait - Psychiatric Psychiatric exam: Present: normal affect, normal mood - Skin Skin exam: Present: warm, dry, intact, normal color. Absent: rash ED Course Vital Signs 11/08/08/21 08/08/21 18:14 20:22 22:03 Temperature 99.3 F 99.0 F 99.0 F Pulse Rate 93 H 75 73 Respiratory 20 14 14 Rate Blood Pressure 128/75 Blood Pressure 130/64 128/69 128/75 [Right] O2 Sat by Pulse 100 97 100 Oximetry ED Medical Decision Making - Lab Data Result diagrams: 08/08/21 18:50 08/08/21 18:50 Lab Results 08/08/21 08/08/21 08/08/21 Range/Units 18:50 18:50 18:50 WBC 12.1 H (4.5-11.0) K/mm3 RBC 4.23 (3.65-5.03) M/mm3 Hgb 11.1 (10.1-14.3) gm/dl Hct 35.7 (30.3-42.9) % MCV 84 (79-97) fl MCH 26 L (28-32) pg MCHC 31 (30-34) % RDW 13.6 (13.2-15.2) % Plt Count 261 (140-440) K/mm3 Lymph % (Auto) 16.4 (13.4-35.0) % Phillips % (Auto) 7.2 (0.0-7.3) % Eos % (Auto) 0.3 (0.0-4.3) % Baso % (Auto) 0.1 (0.0-1.8) % Lymph # (Auto) 2.0 (1.2-5.4) K/mm3 Phillips # (Auto) 0.9 H (0.0-0.8) K/mm3 Eos # (Auto) 0.0 (0.0-0.4) K/mm3 Baso # (Auto) 0.0 (0.0-0.1) K/mm3 Seg Neutrophils % 76.0 H (40.0-70.0) % Seg Neutrophils # 9.2 H (1.8-7.7) K/mm3 Sodium 138 (137-145) mmol/L Potassium 3.9 (3.6-5.0) mmol/L Chloride 104.3 (98-107) mmol/L Carbon Dioxide 21 L (22-30) mmol/L Anion Gap 17 mmol/L BUN 5 L (7-17) mg/dL Creatinine 0.5 L (0.6-1.2) mg/dL Estimated GFR > 60 ml/min BUN/Creatinine Ratio 10 % Glucose 86 (65-100) mg/dL Calcium 9.2 (8.4-10.2) mg/dL Total Bilirubin 0.40 (0.1-1.2) mg/dL AST 12 (5-40) units/L ALT 11 (7-56) units/L Alkaline Phosphatase 73 (35-129) units/L Total Protein 7.4 (6.3-8.2) g/dL Albumin 3.8 L (3.9-5) g/dL Albumin/Globulin Ratio 1.1 % HCG, Quant 06530 H (0-4) mIU/mL Urine Color (Yellow) Urine Turbidity (Clear) Urine pH (5.0-7.0) Ur Specific [place] (1.003-1.030) Urine Protein (Negative) mg/dL Urine Glucose (UA) (Negative) mg/dL Urine Ketones (Negative) mg/dL Urine Blood (Negative) Urine Nitrite (Negative) Urine Bilirubin (Negative) Urine Urobilinogen (<2.0) mg/dL Ur Leukocyte Esterase (Negative) Urine WBC (Auto) (0.0-6.0) /HPF Urine RBC (Auto) (0.0-6.0) /HPF U Epithel Cells (Auto) (0-13.0) /HPF Urine Mucus /HPF Group A Strep Rapid (Negative) 08/08/21 08/08/21 Range/Units Unknown Unknown WBC (4.5-11.0) K/mm3 RBC (3.65-5.03) M/mm3 Hgb (10.1-14.3) gm/dl Hct (30.3-42.9) % MCV (79-97) fl MCH (28-32) pg MCHC (30-34) % RDW (13.2-15.2) % Plt Count (140-440) K/mm3 Lymph % (Auto) (13.4-35.0) % Phillips % (Auto) (0.0-7.3) % Eos % (Auto) (0.0-4.3) % Baso % (Auto) (0.0-1.8) % Lymph # (Auto) (1.2-5.4) K/mm3 Phillips # (Auto) (0.0-0.8) K/mm3 Eos # (Auto) (0.0-0.4) K/mm3 Baso # (Auto) (0.0-0.1) K/mm3 Seg Neutrophils % (40.0-70.0) % Seg Neutrophils # (1.8-7.7) K/mm3 Sodium (137-145) mmol/L Potassium (3.6-5.0) mmol/L Chloride (98-107) mmol/L Carbon Dioxide (22-30) mmol/L Anion Gap mmol/L BUN (7-17) mg/dL Creatinine (0.6-1.2) mg/dL Estimated GFR ml/min BUN/Creatinine Ratio % Glucose (65-100) mg/dL Calcium (8.4-10.2) mg/dL Total Bilirubin (0.1-1.2) mg/dL AST (5-40) units/L ALT (7-56) units/L Alkaline Phosphatase (35-129) units/L Total Protein (6.3-8.2) g/dL Albumin (3.9-5) g/dL Albumin/Globulin Ratio % HCG, Quant (0-4) mIU/mL Urine Color Yellow (Yellow) Urine Turbidity Clear (Clear) Urine pH 7.0 (5.0-7.0) Ur Specific [place] 1.014 (1.003-1.030) Urine Protein <15 mg/dl (Negative) mg/dL Urine Glucose (UA) Neg (Negative) mg/dL Urine Ketones Neg (Negative) mg/dL Urine Blood Neg (Negative) Urine Nitrite Neg (Negative) Urine Bilirubin Neg (Negative) Urine Urobilinogen < 2.0 (<2.0) mg/dL Ur Leukocyte Esterase Neg (Negative) Urine WBC (Auto) 2.0 (0.0-6.0) /HPF Urine RBC (Auto) 1.0 (0.0-6.0) /HPF U Epithel Cells (Auto) 3.0 (0-13.0) /HPF Urine Mucus Few /HPF Group A Strep Rapid Positive A (Negative) - Radiology Data Radiology results: report reviewed ULTRASOUND OBSTETRIC INDICATION / CLINICAL INFORMATION: Pain and cramping. Clinical Gestational Age (GA) in weeks, days: 9 weeks 5 days TECHNIQUE: Transabdominal. COMPARISON: None available. FINDINGS: GESTATIONAL SAC: Well-defined oval shape and intrauterine in location. Uterus measures 11.9 x 5.8 x 7.2 cm. YOLK SAC: No significant abnormality. EMBRYO/FETUS: No significant abnormality. - [place]-Rump Length = 25.6 millimeters = 9 weeks 2 days - Heart Rate, beats per minute (if present) = 178 ADNEXA: Right ovary is normal measuring 2.3 x 1.9 x 2.8 cm. Left ovary not identified. FREE FLUID: None. ADDITIONAL FINDINGS: None. IMPRESSION: 1. Single, living intrauterine with estimated sonographic age of 9 weeks 2 days. - Medical Decision Making 26-year-old -[place] female patient presents to the ED with complaints of sore throat, cough, nasal congestion, and intermittent lower abdominal cramping. Patient states she is 8 weeks and following with [facility]. She also admits to a couple episodes of vomiting without hematemesis/coffee-ground emesis. No vaginal bleeding, dysuria/urinary frequency, vaginal discharge/dyspareunia. No fever, but she admits to chills. She is not vaccinated for COVID-19. She also denies any loss of taste or smell. She rates her throat pain as a 7/10 in severity Rapid strep is positive. No trismus noted on exam. Mildly elevated white count noted at 12.1. UA is normal. Ultrasound shows viable IUP patient given flui ds, antiemetics, and Tylenol. She states her symptoms have significantly improved she is well-appearing her vitals are normal. Strep treated with IM penicillin G. Patient is stable for discharge home. Discussed presumptive diagnosis, care plan, and signs and symptoms that should prompt immediate return to ED with patient verbalized understanding. Critical care attestation.: If time is entered above; I have spent that time in minutes in the direct care of this critically ill patient, excluding procedure time. ED Disposition Clinical Impression: Strep pharyngitis Disposition: 01 HOME / SELF CARE / HOMELESS Is pt being admited?: No Condition: Stable Instructions: Strep Throat, Adult Additional Instructions: Please follow-up with your TOOL[facility]KER HELPER within 3 to 5 days
[2021-08-08 19:30] LABS: Basophils % (Auto) 0.1 % (0.0-1.8); Eosinophils % (Auto) 0.3 % (0.0-4.3); Hematocrit 35.7 % (30.3-42.9); Hemoglobin 11.1 gm/dl (10.1-14.3); Lymphocytes % (Auto) 16.4 % (13.4-35.0); Mean Corpuscular HGB Conc 31 % (30-34); Mean Corpuscular Volume 84 fl (79-97); Monocytes # (Auto) 0.9 K/mm3 (0.0-0.8); Monocytes % (Auto) 7.2 % (0.0-7.3); Platelet Count 261 K/mm3 (140-440); Red Blood Count 4.23 M/mm3 (3.65-5.03); Red Cell Distribution Width 13.6 % (13.2-15.2)
[2021-08-08 19:39] LABS: Alanine Aminotransferase 11 units/L (7-56); Albumin 3.8 g/dL (3.9-5); Blood Urea Nitrogen 5 mg/dL (7-17); Calcium 9.2 mg/dL (8.4-10.2); Hemolysis Index 0
[2021-08-08 19:41] LABS: BUN/Creatinine Ratio 10
[2021-08-08] MEDS ORDERED: PENICILLIN G BENZATHINE 1.2 MILLION UNIT/2 ML INJ IM ONE (19:48)
[2021-08-08] MEDS ORDERED: ACETAMINOPHEN 500 MG TAB PO STA (19:56)
[2021-08-08 20:09] LABS: Bilirubin,Urine NEG (Negative); Blood,Urine NEG (Negative); Color,Urine Yellow (Yellow); Mucus,Urine FEW /HPF; Protein,Urine <15 mg/dL mg/dL (Negative); Urobilinogen,Urine < 2.0 mg/dL (<2.0)
[2021-08-08 20:57] VITALS: BP 128/75
--- NOTE | 2021-08-08 22:05 | Ultrasound Report ---
ULTRASOUND OBSTETRIC INDICATION / CLINICAL INFORMATION: Pain and cramping. Clinical Gestational Age (GA) in weeks, days: 9 weeks 5 days TECHNIQUE: Transabdominal. COMPARISON: None available. FINDINGS: GESTATIONAL SAC: Well-defined oval shape and intrauterine in location. Uterus measures 11.9 x 5.8 x 7 .2 cm. YOLK SAC: No significant abnormality. EMBRYO/FETUS: No significant abnormality. - [place]-Rump Length = 25.6 millimeters = 9 weeks 2 days - Heart Rate, beats per minute (if present) = 178 ADNEXA: Right ovary is normal measuring 2.3 x 1.9 x 2.8 cm. Left ovary not identified. FREE FLUID: None. ADDITIONAL FINDINGS: None. IMPRESSION: 1. Single, living intrauterine with estimated sonographic age of 9 weeks 2 days. Signer Name: Greyson Moore MD Signed: 08/08/2021 10:00 PM Workstation Name: [id number]
== END 2021-08-08 23:16 | disposition home or self-care (01) ==
LOC: ED 18:07
DX: O26.891 Other specified pregnancy related conditions, first trimester (principal); J02.0 Streptococcal pharyngitis; O21.9 Vomiting of pregnancy, unspecified; R10.30 Lower abdominal pain, unspecified; Z88.8 Allergy status to other drugs, medicaments and biological substances; Z3A.08 8 weeks gestation of pregnancy
CPT/HCPCS: 36415; 76801; 80053; 81001; 84702; 85025; 87400; 87430; 96361; 96374; 96375; 99284; J0561; J1200; J2765; J7120